=== PATIENT | male | born 1950 | race Caucasian/White ===

== ENCOUNTER 2017-05-19 10:36 | Emergency (ER) | payer MEDICAID ==
[2017-05-19 10:55] VITALS: BP 128/72
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
[2017-05-19] MEDS ORDERED: Ketorolac 30 MG/ML SDV IM ONE (12:11)
--- NOTE | 2017-05-20 19:53 | EKG ---
05/19/2017 - CAILIN JAEGER - TIME: 10:46 p.m. FINDINGS: EKG shows sinus rhythm. [facility] /[id number]
== END 2017-05-19 12:27 | disposition home or self-care (01) ==
LOC: DL.ED 10:36
DX: M54.2 Cervicalgia (principal); I10 Essential (primary) hypertension; F17.210 Nicotine dependence, cigarettes, uncomplicated; Z88.0 Allergy status to penicillin; Z88.8 Allergy status to other drugs, medicaments and biological substances; Z79.82 Long term (current) use of aspirin; Z79.899 Other long term (current) drug therapy
CPT/HCPCS: 36415; 84484; 85025; 93005; 96372; 99283; J1885; J2360

== ENCOUNTER 2018-07-18 02:47 | Emergency (ER) | payer MEDICARE, BC ==
--- NOTE | 2018-07-18 03:02 | EDM.PDOC ---
ED HPI GENERAL MEDICAL PROBLEM - General Chief Complaint: Chest Pain Stated Complaint: PAIN [id number] Time Seen by Provider: 07/18/18 02:55 Source of Information: Reports: Patient History Limitations: Reports: No Limitations - History of Present Illness INITIAL COMMENTS - FREE TEXT/NARRATIVE: woke up with midsternal chest pain took 2x NTG pain gone but got worried since the pain felt different to other times. does have CP on-off relieved by NTG. takes plavix for femoral stent from clots. - Related Data Allergies Allergy/AdvReac Type Severity Reaction Status Date / Time atorvastatin [From Lipitor] Allergy Muscle Verified 02/18/18 08:16 Aches Penicillins Allergy Rash Verified 02/18/18 08:16 Home Meds: Home Meds Aspirin [Adult Low Dose Aspirin EC] 81 mg PO DAILY 04/12/14 [History] Clopidogrel Bisulfate [Clopidogrel] 75 mg PO DAILY 04/12/14 [History] Chlorthalidone 25 mg PO DAILY 02/18/18 [History] Ciprofloxacin HCl [Cipro] 500 mg PO BID 7 Days #14 tablet 02/18/18 [Rx] Metoprolol Succinate 200 mg PO DAILY 02/18/18 [History] amLODIPine Besylate [Amlodipine Besylate] 5 mg PO DAILY 02/18/18 [History] metroNIDAZOLE [Flagyl] 500 mg PO TID 7 Days #21 tablet 02/18/18 [Rx] predniSONE [Prednisone] 5 mg PO DAILY 02/18/18 [History] Past Medical History Cardiovascular History: Reports: Hypertension Other Cardiovascular History: AAA at 5cm-monitored by Dr. Smith Respiratory History: Reports: COPD Gastrointestinal History: Reports: Other (See Below) Other Gastrointestinal History: Hernia Genitourinary History: Reports: Other (See Below) Other Genitourinary History: bilat. renal cysts Musculoskeletal History: Reports: Other (See Below) Other Musculoskeletal History: herniated disks Neurological History: Reports: Other (See Below) Other Neuro History: Peripheral Artery Disease with stent to lower leg - Past Surgical History GI Surgical History: Reports: Appendectomy Social & Family History - Caffeine Use Caffeine Use: Reports: None ED ROS GENERAL - Review of Systems Review Of Systems: ROS reveals no pertinent complaints other than HPI. ED EXAM, GENERAL - Physical Exam Exam: See Below Exam Limited By: No Limitations General Appearance: Alert, WD/WN, Anxious, Mild Distress, Other (no pain) Ears: Hearing Grossly Normal Throat/Mouth: Normal Voice, No Airway Compromise Head: Atraumatic Neck: Non-Tender, Full Range of Motion Respiratory/Chest: No Respiratory Distress Cardiovascular: Regular Rate, Rhythm GI/Abdominal: Soft, Non-Tender Neurological: Alert, Oriented, Normal Cognition, Normal Gait, No Motor/Sensory Deficits Psychiatric: Anxious Skin Exam: Warm, Dry, Normal Color Lymphatic: No Adenopathy Course - Vital Signs Last Recorded V/S: Last Vital Signs Temp 37.0 C 07/18/18 02:53 Pulse 84 07/18/18 02:53 Resp 15 07/18/18 02:53 BP 138/68 07/18/18 02:53 Pulse Ox 94 L 07/18/18 02:53 - Orders/Labs/Meds Orders: Active Orders 24 hr Category Date Time Status EKG 12 Lead [EKG Documentation Completion] [RC] STAT Care 07/18/18 02:53 Active Labs: Laboratory Tests 07/18/18 07/18/18 07/18/18 Range/Units 03:01 03:01 03:01 WBC 7.5 (5.0-10.0) 10^3/uL RBC 3.68 L (4.6-6.2) 10^6/uL Hgb 12.9 L D (14.0-18.0) g/dL Hct 37.6 L (40.0-54.0) % MCV 102.2 H D (80-100) fL MCH 35.1 H (27.0-34.0) pg MCHC 34.3 (33.0-35.0) g/dL Plt Count 187 (150-450) 10^3/uL Neut % (Auto) 72.3 (42.2-75.2) % Lymph % (Auto) 18.3 L (20.5-50.1) % [place] % (Auto) 8.2 H (2-8) % Eos % (Auto) 0.9 L (1.0-3.0) % Baso % (Auto) 0.3 (0.0-1.0) % Sodium 134 L (135-145) mmol/L Potassium 3.5 L (3.6-5.0) mmol/L Chloride 102 (101-111) mmol/L Carbon Dioxide 23.0 (21.0-31.0) mmol/L Anion Gap 12.5 BUN 27 H (7-18) mg/dL Creatinine 1.6 H (0.6-1.3) mg/dL Est Cr Clr Drug Dosing 50.52 mL/min Estimated GFR (MDRD) 44 BUN/Creatinine Ratio 16.87 Glucose 138 H (74-105) mg/dL Calcium 8.6 (8.4-10.2) mg/dl Total Bilirubin 0.8 (0.2-1.0) mg/dL AST 22 (10-42) IU/L ALT 15 (10-60) IU/L Alkaline Phosphatase 81 (42-121) IU/L Troponin I 0.00 (0.00-0.08) ng/mL Total Protein 6.5 L (6.7-8.2) g/dl Albumin 3.1 L (3.2-5.5) g/dl Globulin 3.4 Albumin/Globulin Ratio 0.91 Ethyl Alcohol < 5 mg/dL - Re-Assessments/Exams Free Text/Narrative Re-Assessment/Exam: 07/18/18 04:14 results discussed with pt who remains pain free and prefers to go home but will return prn. states has been under lot of stress past week but everything has been resolved and did go out to celebrate with couple margaritas earlier in the evening. Departure - Departure Time of Disposition: 04:14 Disposition: Home, Self-Care 01 Condition: Fair Clinical Impression: Angina pectoris without myocardial infarction Instructions: Angina Pectoris, [id number] Forms: ED Department Discharge Additional Instructions: 1) rest and avoid vigorous activities 2) return if there is any change or concern - My Orders Last 24 Hours: My Active Orders 07/18/18 02:53 EKG 12 Lead [EKG Documentation Completion] [RC] STAT - Assessment/Plan Last 24 Hours: My Active Orders 07/18/18 02:53 EKG 12 Lead [EKG Documentation Completion] [RC] STAT
[2018-07-18 03:28] LABS: ANION GAP 12.5
[2018-07-18 04:32] VITALS: BP 121/95
== END 2018-07-18 04:30 | disposition home or self-care (01) ==
LOC: DL.ED 02:47
DX: I20.9 Angina pectoris, unspecified (principal); I10 Essential (primary) hypertension; J44.9 Chronic obstructive pulmonary disease, unspecified; Z79.899 Other long term (current) drug therapy; Z79.82 Long term (current) use of aspirin; Z88.0 Allergy status to penicillin; Z88.8 Allergy status to other drugs, medicaments and biological substances
CPT/HCPCS: 36415; 80053; 84484; 85025; 93005; 99285; G0480

== ENCOUNTER 2020-10-27 09:21 | Emergency (ER) | payer MEDICARE, BC ==
[2020-10-27] MEDS ORDERED: Aspirin 81 MG Tab.Chew PO ONE (09:31)
[2020-10-27] MEDS ORDERED: Clopidogrel 75 MG Tab PO ONE (09:44)
[2020-10-27] MEDS ORDERED: Heparin Sodium 5,000 Units/ML Vial IVPUSH ONE (09:45)
[2020-10-27] MEDS ORDERED: Heparin Sodium/0.45% NaCl 25,000 UNITS/500 ML BAG IV SCH (09:45)
[2020-10-27] MEDS ORDERED: Nitroglycerin/D5W 25 MG/250 ML BOTTLE IV SCH (09:45)
--- NOTE | 2020-10-27 09:46 | EDM.PDOC ---
<Alanis Day - Last Filed: 10/27/20 10:17> ED HPI GENERAL MEDICAL PROBLEM - General Chief Complaint: Chest Pain Stated Complaint: HEART PAIN TOOK MED THAT SEEMED TO HELP Time Seen by Provider: 10/27/20 09:30 Chest Pain Score (Numeric/FACES): 0 - Related Data Allergies Allergy/AdvReac Type Severity Reaction Status Date / Time atorvastatin [From Lipitor] Allergy Muscle Verified 07/18/18 04:15 Aches Penicillins Allergy Rash Verified 07/18/18 04:15 Home Meds: Home Meds Aspirin [Adult Low Dose Aspirin EC] 81 mg PO DAILY 04/12/14 [History] Clopidogrel Bisulfate [Clopidogrel] 75 mg PO DAILY 04/12/14 [History] Chlorthalidone 25 mg PO DAILY 02/18/18 [History] Ciprofloxacin HCl [Cipro] 500 mg PO BID 7 Days #14 tablet 02/18/18 [Rx] Metoprolol Succinate 200 mg PO DAILY 02/18/18 [History] amLODIPine Besylate [Amlodipine Besylate] 5 mg PO DAILY 02/18/18 [History] metroNIDAZOLE [Flagyl] 500 mg PO TID 7 Days #21 tablet 02/18/18 [Rx] predniSONE [Prednisone] 5 mg PO DAILY 02/18/18 [History] Course - Radiology Interpretation Free Text/Narrative:: [facility] Final Radiology Report Call: [phone] assistance Online chat: [email or web address] Name: CAILIN JAEGER Age: 70Years M Date: 10/27/2020 SSN: -- : [id number] Study: CR CHEST 1V FRONTAL Requesting Physician: ALANIS DAY Images: 1 Addl Studies: Provided Clinical History: chest pain Contrast: Contrast Medium: Contrast Amount: Contrast Method: CONFIDENTIALITY STATEMENT This report is intended only for use by the referring physician, and only in accordance with law. If you received this in error, call [phone]. Page 1 of 1 PROCEDURE INFORMATION: Exam: XR Chest Exam date and time: 10/27/2020 9:44 AM Age: 70 years old Clinical indication: Chest wall pain; Additional info: Chest pain TECHNIQUE: Imaging protocol: XR of the chest. Views: 1 view. COMPARISON: No relevant prior studies available. FINDINGS: Lungs: Unremarkable. No consolidation. Pleural spaces: Unremarkable. No pleural effusion. No pneumothorax. Heart/Mediastinum: Unremarkable. No cardiomegaly. Bones/joints: Unremarkable. IMPRESSION: No acute findings. Thank you for allowing us to participate in the care of your patient. Dictated and Authenticated by: Min Aguillon MD 10/27/2020 10:08 AM Central Time ([place] & [place]) - Re-Assessments/Exams Free Text/Narrative Re-Assessment/Exam: 10/27/20 10:17 I saw and evaluated the patient. Discussed with PA and agree with PAs findings and plan as documented in the PAs note. Departure - Departure Disposition: DC/Tfer to Acute Hospital 02 Clinical Impression: Acute myocardial infarction Qualifiers: Myocardial infarction type: ST elevation myocardial infarction Involved coronary artery: right coronary artery Qualified Code(s): I21.11 - ST elevation (STEMI) myocardial infarction involving right coronary artery Forms[facility] <Michael Gorman - Last Filed: 10/27/20 10:42> ED HPI GENERAL MEDICAL PROBLEM - General Source of Information: Reports: Patient History Limitations: Reports: No Limitations - History of Present Illness INITIAL COMMENTS - FREE TEXT/NARRATIVE: 70 y/o M c/o sudden onset cp that woke him from sleep about 6 am this morning. Pn was 8/10 center chest, sharp in nature and radiating into his jaw. Pt took a nitro at the onset of pain and his pain went down to a 2/10 but came back up to an 8 ten minutes later. At 7 am he took another nitro and his pain went down to a 2 and remained there. He then drove hismelf to the ER. Currently the pain is constant, sharp center chest 2/10 but no longer radiates into the jaw. Heavy smoker 3 packs a day. Hx of AAA that is being watched by his physician. Denies domínguez db, nv, vision prob, trauma, abd pn, back pn. Onset: Today Onset Date: 10/27/20 Onset Time: 06:00 Duration: Hour(s): Location: Reports: Chest Quality: Reports: Sharp Severity: Severe Improves with: Reports: Medication Chest Pain Score (Numeric/FACES): 2 Past Medical History Cardiovascular History: Reports: Hypertension Other Cardiovascular History: AAA at 5cm-monitored by Dr. Smith Respiratory History: Reports: COPD Gastrointestinal History: Reports: Other (See Below) Other Gastrointestinal History: Hernia Genitourinary History: Reports: Other (See Below) Other Genitourinary History: bilat. renal cysts Musculoskeletal History: Reports: Other (See Below) Other Musculoskeletal History: herniated disks Neurological History: Reports: Other (See Below) Other Neuro History: Peripheral Artery Disease with stent to lower leg - Past Surgical History GI Surgical History: Reports: Appendectomy Social & Family History - Family History Cardiac: Reports: Hypertension Neurological: Reports: TIA - Caffeine Use Caffeine Use: Reports: None ED ROS GENERAL - Review of Systems Review Of Systems: Comprehensive ROS is negative, except as noted in HPI. ED EXAM, GENERAL - Physical Exam Exam: See Below Exam Limited By: No Limitations General Appearance: Alert Throat/Mouth: Normal Oropharynx Head: Atraumatic, Normocephalic Neck: Normal Inspection, Supple, Non-Tender, Full Range of Motion Respiratory/Chest: No Respiratory Distress, Chest Non-Tender, Rhonchi Peripheral Pulses: 2+: Carotid (L), Carotid (R), Radial (L), Radial (R) GI/Abdominal: Soft, Non-Tender (Male) Exam: Deferred Rectal (Males) Exam: Deferred Back Exam: Normal Inspection, Full Range of Motion Extremities: Normal Inspection, Normal Range of Motion, Non-Tender, Normal Capillary Refill, No Pedal Edema Neurological: Alert, Oriented, CN II-XII Intact, Normal Cognition, Normal Gait, Normal Reflexes, No Motor/Sensory Deficits Psychiatric: Normal Affect, Normal Mood Skin Exam: Warm, Dry, Intact #1 Interpretation EKG Date: 10/27/20 Time: 09:40 Rhythm: NSR [place]: Normal P-Wave: Present QRS: Normal ST-T: Elevated QT: Normal EKG Interpretation Comments: Inferior PA Course - Vital Signs Last Recorded V/S: Last Vital Signs Temp 98.2 F 10/27/20 09:53 Pulse 80 10/27/20 09:53 Resp 16 10/27/20 09:53 BP 131/78 10/27/20 09:53 Pulse Ox 99 10/27/20 09:53 - Orders/Labs/Meds Orders: Active Orders 24 hr Category Date Time Status EKG 12 Lead [EKG Documentation Completion] [RC] STAT Care 10/27/20 10:07 Active Heparin Sodium/0.45% NaCl [Heparin 25,000 Units in 1/2 Med 10/27/20 09:45 Active NS 500 ML] 25,000 units in 500 ml IV TITRATE Nitroglycerin/D5W [Nitroglycerin 25 MG/D5W 250 ML] Med 10/27/20 09:45 Active 25 mg in 250 ml IV TITRATE Medication Orders Nitroglycerin/Dextrose (Nitroglycerin 25 Mg/D5w 250 Ml) 25 mg in 250 mls @ 6 mls/hr IV TITRATE IESHA; Protocol Heparin Sodium/Sodium Chloride (Heparin 25,000 Units In 1/2 Ns 500 Ml) 25,000 units in 500 mls @ 20 mls/hr IV TITRATE IESHA; Protocol Last Admin: 10/27/20 10:13 Dose: 20 mls/hr, 20 mls/hr Documented by: SHAWNA Cosigned by: MILTON Labs: Laboratory Tests 10/27/20 10/27/20 10/27/20 Range/Units 09:34 09:34 09:34 WBC 10.2 H (5.0-10.0) 10^3/uL RBC 4.07 L (4.6-6.2) 10^6/uL Hgb 14.6 D (14.0-18.0) g/dL Hct 41.1 (40.0-54.0) % MCV 101.0 H (80-100) fL MCH 35.9 H (27.0-34.0) pg MCHC 35.5 H (33.0-35.0) g/dL Plt Count 202 (150-450) 10^3/uL Neut % (Auto) 80.2 H (42.2-75.2) % Lymph % (Auto) 10.3 L (20.5-50.1) % [place] % (Auto) 9.0 H (2-8) % Eos % (Auto) 0.4 L (1.0-3.0) % Baso % (Auto) 0.1 (0.0-1.0) % PT 9.6 (9.0-12.0) SEC INR 1.0 (0.9-1.2) APTT 24.2 (22.0-34.0) SEC D-Dimer, Quantitative 1130 H (0-400) ng/mL Sodium 136 (136-145) mmol/L Potassium 3.4 L (3.5-5.1) mmol/L Chloride 98 (98-107) mmol/L Carbon Dioxide 25 (21-32) mmol/L Anion Gap 16.4 H (7-13) mEq/L BUN 38 H (7-18) mg/dL Creatinine 2.18 H (0.70-1.30) mg/dL Est Cr Clr Drug Dosing 35.60 mL/min Estimated GFR (MDRD) 30 BUN/Creatinine Ratio 17.4 (No establ ref range) Glucose 104 H (70-99) mg/dL Calcium 8.6 (8.5-10.1) mg/dL Total Bilirubin 1.3 H (0.2-1.0) mg/dL AST 21 (15-37) U/L ALT 22 (16-63) U/L Alkaline Phosphatase 103 (46-116) U/L Troponin I High Sens 22 (<=76) pg/mL B-Natriuretic Peptide 10 (0-100) pg/ml Total Protein 7.6 (6.4-8.2) g/dL Albumin 3.0 L (3.4-5.0) g/dL Globulin 4.6 Albumin/Globulin Ratio 0.65 Amylase 53 (25-115) U/L Lipase 121 (73-393) U/L Meds: Medications Generic Name Dose Route Start Last Admin Trade Name Alexisq PRN Reason Stop Dose Admin Nitroglycerin/Dextrose 25 mg in 250 mls @ 6 mls/hr 10/27/20 09:45 Nitroglycerin 25 Mg/D5w 250 Ml IV TITRATE IESHA Protocol 10 MCG/MIN Heparin Sodium/Sodium Chloride 25,000 units in 500 mls @ 20 mls/hr 10/27/20 09:45 10/27/20 10:13 Heparin 25,000 Units In 1/2 Ns 500 Ml IV 20 mls/hr TITRATE IESHA 20 mls/hr Administration Protocol Discontinued Medications Generic Name Dose Route Start Last Admin Trade Name Alexisq PRN Reason Stop Dose Admin Aspirin 324 mg 10/27/20 09:31 10/27/20 10:04 Aspirin 81 Mg Tab.Chew PO 10/27/20 09:32 324 mg ONETIME ONE Administration Clopidogrel Bisulfate 300 mg 10/27/20 09:44 Clopidogrel 75 Mg Tab PO 10/27/20 09:45 ONETIME ONE Heparin Sodium (Porcine) 4,000 units 10/27/20 09:45 10/27/20 10:05 Heparin Sodium 5,000 Units/Ml Vial IVPUSH 10/27/20 09:46 4,000 units .BOLUS ONE Administration Departure - Departure Time of Disposition: 10:05 Reason for Transfer *Q: Other Condition: Serious Sepsis Event Note (ED) - Focused Exam Vital Signs: Vital Signs Temp Pulse Resp BP Pulse Ox 10/27/20 09:53 98.2 F 80 16 131/78 99
[2020-10-27 09:59] LABS: PTT,PARTIAL THROMBOPLSTIN TIME 24.2 SEC (22.0-34.0)
[2020-10-27 10:03] LABS: ANION GAP 16.4 mEq/L (7-13)
[2020-10-27 10:05] VITALS: BP 131/78; PULSE 80
--- NOTE | 2020-10-27 10:08 | CR ---
PROCEDURE INFORMATION: Exam: XR Chest Exam date and time: 10/27/2020 9:44 AM Age: 70 years old Clinical indication: Chest wall pain; Additional info: Chest pain TECHNIQUE: Imaging protocol: XR of the chest. Views: 1 view. COMPARISON: No relevant prior studies available. FINDINGS: Lungs: Unremarkable. No consolidation. Pleural spaces: Unremarkable. No pleural effusion. No pneumothorax. Heart/Mediastinum: Unremarkable. No cardiomegaly. Bones/joints: Unremarkable. IMPRESSION: No acute findings.
== END 2020-10-27 10:50 ==
LOC: DL.ED 09:21
DX: I21.11 ST elevation (STEMI) myocardial infarction involving right coronary artery (principal); I10 Essential (primary) hypertension; J44.9 Chronic obstructive pulmonary disease, unspecified; Z88.0 Allergy status to penicillin; Z88.8 Allergy status to other drugs, medicaments and biological substances; Z79.82 Long term (current) use of aspirin; Z79.02 Long term (current) use of antithrombotics/antiplatelets
CPT/HCPCS: 36415; 71045; 80053; 82150; 83690; 83880; 84484; 85025; 85379; 85610; 85730; 93005; 96365; 99285-25; A9270-GY; J1644

== ENCOUNTER 2021-01-05 17:16 | Emergency (ER) | payer MEDICARE, BC ==
[2021-01-05] MEDS ORDERED: Sodium Chloride 0.9% 10 ML Syringe FLUSH PRN (17:24)
--- NOTE | 2021-01-05 17:49 | EDM.PDOC ---
ED HPI GENERAL MEDICAL PROBLEM - General Stated Complaint: SLURRED WORDS, MAYBE STROKE Time Seen by Provider: 01/05/21 17:20 Source of Information: Reports: Patient, Family History Limitations: Reports: Altered Mental Status - History of Present Illness INITIAL COMMENTS - FREE TEXT/NARRATIVE: 70 y/o M lucilah in by son Wily for eval of possibel stroke. The son reports he called the pt at 430 and the pt was not making sense. He went to [facility] and drove him to the ER. The pt mumbles and cannot form words complicating the exam. The son found that the pt had talked to the uncle at 240 and was normal at that time. Hx of triple bypass around 2 months ago. Heavy smoker for many years.Heavy alcohol user. Unknown if pt is on blood thinners. No reported trauma. - Related Data Allergies Allergy/AdvReac Type Severity Reaction Status Date / Time atorvastatin [From Lipitor] Allergy Muscle Verified 01/05/21 18:00 Aches Penicillins Allergy Rash Verified 01/05/21 18:00 Home Meds: Home Meds Aspirin [Adult Low Dose Aspirin EC] 81 mg PO DAILY 04/12/14 [History] Clopidogrel Bisulfate [Clopidogrel] 75 mg PO DAILY 04/12/14 [History] Chlorthalidone 25 mg PO DAILY 02/18/18 [History] Ciprofloxacin HCl [Cipro] 500 mg PO BID 7 Days #14 tablet 02/18/18 [Rx] Metoprolol Succinate 200 mg PO DAILY 02/18/18 [History] amLODIPine Besylate [Amlodipine Besylate] 5 mg PO DAILY 02/18/18 [History] metroNIDAZOLE [Flagyl] 500 mg PO TID 7 Days #21 tablet 02/18/18 [Rx] predniSONE [Prednisone] 5 mg PO DAILY 02/18/18 [History] Past Medical History - Past Health History Medical/Surgical History: Denies Medical/Surgical History Cardiovascular History: Reports: Hypertension Other Cardiovascular History: AAA at 5cm-monitored by Dr. Smith Respiratory History: Reports: COPD Gastrointestinal History: Reports: Other (See Below) Other Gastrointestinal History: Hernia Genitourinary History: Reports: Other (See Below) Other Genitourinary History: bilat. renal cysts Musculoskeletal History: Reports: Other (See Below) Other Musculoskeletal History: herniated disks Neurological History: Reports: Other (See Below) Other Neuro History: Peripheral Artery Disease with stent to lower leg - Past Surgical History GI Surgical History: Reports: Appendectomy Social & Family History - Family History Cardiac: Reports: Hypertension Neurological: Reports: TIA - Caffeine Use Caffeine Use: Reports: Coffee ED ROS GENERAL - Review of Systems Review Of Systems: Unable To Obtain Reason Not Obtained: ams stroke ED EXAM, NEURO - Physical Exam Exam: See Below Exam Limited By: Other (Appears to be having a stroke pt tries to form words but cannot. Pt does not follow commands. Pt cannot write answers to questions with a pen) General Appearance: Alert Eye Exam: Bilateral Eye: PERRL (conjugate gaze) Ears: Normal External Exam, Normal Canal, Hearing Grossly Normal, Normal TMs Nose: Normal Inspection, Normal Mucosa, No Blood Throat/Mouth: Normal Inspection, Normal Lips, Normal Teeth, Normal Gums, Normal Oropharynx, Normal Voice, No Airway Compromise Head Exam: Atraumatic, Normocephalic Neck: Supple, Non-Tender Respiratory/Chest: Lungs Clear, Normal Breath Sounds Cardiovascular: Normal Peripheral Pulses, Regular Rate, Rhythm GI/Abdominal: Soft, Non-Tender (Male) Exam: Deferred Rectal (Males) Exam: Deferred Neurological: Alert, Other (No pronator drift, equal supervisor backfilling, no listing of the tongue, Pt unable to articulate his words and can grunt yesd or no but does not follow commands such as a finger to nose or heel to mcrae exercise. NIH score of 10) Comments: NIH score at time of arrival was 13. #1 Interpretation EKG Date: 01/05/21 Time: 17:40 Rhythm: Other (sinus with first degree block) [place]: Normal P-Wave: Present QRS: Normal ST-T: Normal QT: Normal Course - Vital Signs Last Recorded V/S: Last Vital Signs Temp 98.1 F 01/05/21 19:15 Pulse 84 01/05/21 20:38 Resp 24 H 01/05/21 20:38 BP 173/105 H 01/05/21 20:38 Pulse Ox 97 01/05/21 20:38 - Orders/Labs/Meds Orders: Active Orders 24 hr Category Date Time Status Blood Glucose Check, Bedside [RC] ONETIME Care 01/05/21 17:26 Active [place] Catheter Insertion [Insert Urinary Catheter] [OM. Care 01/05/21 18:45 Ordered PC] Q24H Insert [place] Catheter [Insert Urinary Catheter] [OM.PC] Care 01/05/21 19:00 Ordered Q24H Peripheral IV Care [RC] . DIRECTED Care 01/05/21 17:25 Active Urinary Catheter Assessment [RC] ASDIRECTED Care 01/05/21 18:44 Active Urinary Catheter Assessment [RC] ASDIRECTED Care 01/05/21 18:56 Active NPO Now [Nothing per Oral Now Diet] [DIET] Diet 01/06/21 Breakfast Active Alteplase [Activase] Med 01/05/21 18:45 Active 8.1 mg IVPUSH .BOLUS Sodium Chloride 0.9% [Saline Flush] Med 01/05/21 17:24 Active 10 ml FLUSH ASDIRECTED PRN Peripheral IV Insertion Adult [OM.PC] Routine Oth 01/05/21 17:24 Ordered Medication Orders Alteplase, Recombinant (Alteplase 100 Mg Vial) 8.1 mg IVPUSH .BOLUS IESHA Last Admin: 01/05/21 18:35 Dose: 8.1 mg Documented by: LUZ Cosigned by: MATIAS Sodium Chloride (Sodium Chloride 0.9% 10 Ml Syringe) 10 ml FLUSH ASDIRECTED PRN PRN Reason: Keep Vein Open Last Admin: 01/05/21 18:14 Dose: 10 ml Documented by: LUZ Labs: Laboratory Tests 01/05/21 01/05/21 01/05/21 Range/Units 17:24 17:25 17:25 WBC 6.8 (5.0-10.0) 10^3/uL RBC 3.70 L (4.6-6.2) 10^6/uL Hgb 11.8 L D (14.0-18.0) g/dL Hct 37.2 L (40.0-54.0) % MCV 100.5 H (80-100) fL MCH 31.9 (27.0-34.0) pg MCHC 31.7 L (33.0-35.0) g/dL Plt Count 209 (150-450) 10^3/uL Neut % (Auto) 57.6 (42.2-75.2) % Lymph % (Auto) 31.2 (20.5-50.1) % [place] % (Auto) 8.9 H (2-8) % Eos % (Auto) 2.2 (1.0-3.0) % Baso % (Auto) 0.1 (0.0-1.0) % PT (9.0-12.0) SEC INR (0.9-1.2) Sodium 140 (136-145) mmol/L Potassium 4.1 (3.5-5.1) mmol/L Chloride 105 (98-107) mmol/L Carbon Dioxide 26 (21-32) mmol/L Anion Gap 13.1 H (7-13) mEq/L BUN 23 H (7-18) mg/dL Creatinine 1.66 H (0.70-1.30) mg/dL Est Cr Clr Drug Dosing TNP Estimated GFR (MDRD) 41 BUN/Creatinine Ratio 13.9 (No establ ref range) Glucose 101 H (70-99) mg/dL POC Glucose 91 (70-99) mg/dL Calcium 8.1 L (8.5-10.1) mg/dL Magnesium 2.3 (1.8-2.4) mg/dL Total Bilirubin 0.3 (0.2-1.0) mg/dL AST 15 (15-37) U/L ALT 8 L (16-63) U/L Alkaline Phosphatase 148 H (46-116) U/L C-Reactive Protein 0.6 (0.0-0.9) mg/dL Total Protein 6.8 (6.4-8.2) g/dL Albumin 2.6 L (3.4-5.0) g/dL Globulin 4.2 Albumin/Globulin Ratio 0.62 Ethyl Alcohol < 3 (0) mg/dL SARS-CoV-2 RNA (MELO) (NEGATIVE) 01/05/21 01/05/21 Range/Units 17:25 17:47 WBC (5.0-10.0) 10^3/uL RBC (4.6-6.2) 10^6/uL Hgb (14.0-18.0) g/dL Hct (40.0-54.0) % MCV (80-100) fL MCH (27.0-34.0) pg MCHC (33.0-35.0) g/dL Plt Count (150-450) 10^3/uL Neut % (Auto) (42.2-75.2) % Lymph % (Auto) (20.5-50.1) % [place] % (Auto) (2-8) % Eos % (Auto) (1.0-3.0) % Baso % (Auto) (0.0-1.0) % PT 9.5 (9.0-12.0) SEC INR 0.9 (0.9-1.2) Sodium (136-145) mmol/L Potassium (3.5-5.1) mmol/L Chloride (98-107) mmol/L Carbon Dioxide (21-32) mmol/L Anion Gap (7-13) mEq/L BUN (7-18) mg/dL Creatinine (0.70-1.30) mg/dL Est Cr Clr Drug Dosing Estimated GFR (MDRD) BUN/Creatinine Ratio (No establ ref range) Glucose (70-99) mg/dL POC Glucose (70-99) mg/dL Calcium (8.5-10.1) mg/dL Magnesium (1.8-2.4) mg/dL Total Bilirubin (0.2-1.0) mg/dL AST (15-37) U/L ALT (16-63) U/L Alkaline Phosphatase (46-116) U/L C-Reactive Protein (0.0-0.9) mg/dL Total Protein (6.4-8.2) g/dL Albumin (3.4-5.0) g/dL Globulin Albumin/Globulin Ratio Ethyl Alcohol (0) mg/dL SARS-CoV-2 RNA (MELO) Negative (NEGATIVE) Meds: Medications Generic Name Dose Route Start Last Admin Trade Name Freq PRN Reason Stop Dose Admin Alteplase, Recombinant 8.1 mg 01/05/21 18:45 01/05/21 18:35 Alteplase 100 Mg Vial IVPUSH 8.1 mg .BOLUS IESHA Administration Sodium Chloride 10 ml 01/05/21 17:24 01/05/21 18:14 Sodium Chloride 0.9% 10 Ml Syringe FLUSH 10 ml ASDIRECTED PRN Administration Keep Vein Open Discontinued Medications Generic Name Dose Route Start Last Admin Trade Name Freq PRN Reason Stop Dose Admin Alteplase, Recombinant 72.75 0 mls @ 0 mls/hr 01/05/21 18:28 01/05/21 18:31 mg/ Alteplase, Recombinant IV 11/12/21 18:29 72.9 mls/hr ASDIRECTED STA Administration - Re-Assessments/Exams Free Text/Narrative Re-Assessment/Exam: 01/05/21 18:[address] Barboza the stroke neurologist at [facility] and he reviewed the CT and i read the reprot to him. After explaining the pts hx and representation Dr. Barboza instructed me to give Tpa after explaining the risks and benefits of it to the family. The family was informed of the risks and benefits and the son Wily gave permission to do the infusion. The pt cannot articulate or form his words but when I asked him for permission to do the infusion he nodded yes. I do not know if the pt truly understands what is happening to him so I also relied on the son for help with his medical decisions. 01/05/21 18:55 The pt did not have any contraindications to tPa except a recent KS in the last three months. Dr. Barboza explained that a recent inferior KS is a relative contraindication to tPa but he felt given the pts presentation the risk was worth the benefit. 01/05/21 19:03 [facility] fixed wing can transfer pt to [place]. Pt cannot go by chopper due to weather. Flight will take 1.5 hrs to get here. 01/05/21 20:47 The pts blood pressure was increasing with the latest being 173/105. I consulted with Dr. Barboza again who would like the bp to reamin below 10/105 post tPa. He suggested nicardipine of hydralazine if the BP increases. Departure - Departure Time of Disposition: 19:40 Disposition: DC/Tfer to Acute Hospital 02 Condition: Serious Clinical Impression: Ischemic stroke - Discharge Information *PRESCRIPTION DRUG MONITORING PROGRAM REVIEWED*: Not Applicable *COPY OF PRESCRIPTION DRUG MONITORING REPORT IN PATIENT LUIS MIGUEL: Not Applicable Forms: Interfacility Transfer EMTALA Sepsis Event Note (ED) - Focused Exam Vital Signs: Vital Signs Temp Pulse Resp BP BP Pulse Ox 01/05/21 20:38 84 24 H 173/105 H 97 01/05/21 20:21 86 20 172/102 H 96 01/05/21 20:00 86 16 166/99 H 97 01/05/21 19:45 86 22 H 184/83 H 100 01/05/21 19:30 82 18 175/95 H 99 01/05/21 19:15 98.1 F 80 18 187/99 H 99 01/05/21 18:04 97.8 F 85 20 193/122 H 98 - My Orders Last 24 Hours: My Active Orders 01/05/21 17:24 Sodium Chloride 0.9% [Saline Flush] 10 ml FLUSH ASDIRECTED PRN Peripheral IV Insertion Adult [OM.PC] Routine 01/05/21 17:25 Peripheral IV Care [RC] . DIRECTED 01/05/21 17:26 Blood Glucose Check, Bedside [RC] ONETIME 01/05/21 18:44 Urinary Catheter Assessment [RC] ASDIRECTED 01/05/21 18:45 [place] Catheter Insertion [Insert Urinary Catheter] [OM.PC] Q24H Alteplase [Activase] 8.1 mg IVPUSH .BOLUS 01/05/21 18:56 Urinary Catheter Assessment [RC] ASDIRECTED 01/05/21 19:00 Insert [place] Catheter [Insert Urinary Catheter] [OM.PC] Q24H - Assessment/Plan Last 24 Hours: My Active Orders 01/05/21 17:24 Sodium Chloride 0.9% [Saline Flush] 10 ml FLUSH ASDIRECTED PRN Peripheral IV Insertion Adult [OM.PC] Routine 01/05/21 17:25 Peripheral IV Care [RC] . DIRECTED 01/05/21 17:26 Blood Glucose Check, Bedside [RC] ONETIME 01/05/21 18:44 Urinary Catheter Assessment [RC] ASDIRECTED 01/05/21 18:45 [place] Catheter Insertion [Insert Urinary Catheter] [OM.PC] Q24H Alteplase [Activase] 8.1 mg IVPUSH .BOLUS 01/05/21 18:56 Urinary Catheter Assessment [RC] ASDIRECTED 01/05/21 19:00 Insert [place] Catheter [Insert Urinary Catheter] [OM.PC] Q24H
[2021-01-05 17:51] LABS: ANION GAP 13.1 mEq/L (7-13); CHLORIDE,CL 105 mmol/L (98-107); SODIUM,NA 140 mmol/L (136-145)
--- NOTE | 2021-01-05 18:00 | CT ---
PROCEDURE INFORMATION: Exam: CT Head Without Contrast Exam date and time: 01/05/2021 5:29 PM Age: 70 years old Clinical indication: Other: Slurred speech; Additional info: Dysphasia, R facial droop TECHNIQUE: Imaging protocol: Computed tomography of the head without contrast. Radiation optimization: All CT scans at this facility use at least one of these dose optimization techniques: automated exposure control; mA and/or kV adjustment per patient size (includes targeted exams where dose is matched to clinical indication); or iterative reconstruction. Other technique: STROKE PROTOCOL was implemented. COMPARISON: CT Head wo Cont 07/01/2018 11:03 AM FINDINGS: Brain: Generalized cortical atrophy with chronic white matter ischemic change. No acute hemorrhage. 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 No mass effect. Suggestion of acute/subacute ischemic change in the right temporal lobe. Cerebral ventricles: No ventriculomegaly. Paranasal sinuses: Visualized sinuses are unremarkable. No fluid levels. Mastoid air cells: Visualized mastoid air cells are well aerated. Bones/joints: Unremarkable. No acute fracture. Soft tissues: Unremarkable. IMPRESSION: 1. Age-related involutional changes. 2. Suggestion of acute ischemic infarct the right temporal lobe. 3. Evidence of old ischemic infarcts in the left hemisphere. ASSESSMENT: ASPECTS ([place] Stroke Program Early CT Score) is 8.
[2021-01-05] MEDS ORDERED: INFUSION IV STA (18:28)
[2021-01-05] MEDS ORDERED: ALTEPLASE IV STA (18:28)
[2021-01-05 21:35] VITALS: BP 166/94; PULSE 86
== END 2021-01-05 21:03 ==
LOC: DL.ED 17:16
DX: I63.9 Cerebral infarction, unspecified (principal); R29.713 NIHSS score 13; I10 Essential (primary) hypertension; J44.9 Chronic obstructive pulmonary disease, unspecified; Z88.0 Allergy status to penicillin; Z88.8 Allergy status to other drugs, medicaments and biological substances; Z79.82 Long term (current) use of aspirin; Z79.02 Long term (current) use of antithrombotics/antiplatelets; Z20.822 Contact with and (suspected) exposure to COVID-19
CPT/HCPCS: 36415; 37195; 51702; 70450; 80053; 80307; 82947; 83735; 85025; 85610; 86140; 93005; 99285; J2997; U0002

== ENCOUNTER 2021-02-02 19:58 | Emergency (ER) | payer MEDICARE, BC ==
[2021-02-02] MEDS ORDERED: Sodium Chloride 0.9% 10 ML Syringe FLUSH PRN (20:31)
[2021-02-02 21:06] LABS: ANION GAP 19.7 mEq/L (7-13); CHLORIDE,CL 105 mmol/L (98-107); SODIUM,NA 140 mmol/L (136-145)
--- NOTE | 2021-02-02 21:08 | EDM.PDOC ---
ED HPI GENERAL MEDICAL PROBLEM - General Source of Information: Reports: Patient History Limitations: Reports: Altered Mental Status <Michael Gorman - Last Filed: 02/02/21 22:29> <Mary Solis - Last Filed: 02/05/21 00:17> - General Chief Complaint: Neurological Problem Stated Complaint: CHECK OVER NOT FEELING GOOD. Time Seen by Provider: 02/02/21 21:00 - History of Present Illness INITIAL COMMENTS - FREE TEXT/NARRATIVE: 70 y/o M brought to the ER by a neighbor after being found in his truck in a ditch. 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 Hx of [place] months ago. Is prescribed blood thinners unknown if he is taking them. Unknown trauma today. Pt initally stated no alcohol today and then minutes later admitted to [facility]. Pt initially denied pain and minutes later complained of cp. pt uncle and brother have stated that pt is on a downward trend and continues to drink alcohol and not go to his rehab appointments. Pt is ams and cannot seem to give straight answers to questions thus inhibiting hpi, and physical exam. (Michael Gorman) - Related Data Allergies Allergy/AdvReac Type Severity Reaction Status Date / Time atorvastatin [From Lipitor] Allergy Muscle Verified 01/05/21 18:00 Aches Penicillins Allergy Rash Verified 01/05/21 18:00 Home Meds: Home Meds Aspirin [Adult Low Dose Aspirin EC] 81 mg PO DAILY 04/12/14 [History] Clopidogrel Bisulfate [Clopidogrel] 75 mg PO DAILY 04/12/14 [History] Chlorthalidone 25 mg PO DAILY 02/18/18 [History] Ciprofloxacin HCl [Cipro] 500 mg PO BID 7 Days #14 tablet 02/18/18 [Rx] Metoprolol Succinate 200 mg PO DAILY 02/18/18 [History] amLODIPine Besylate [Amlodipine Besylate] 5 mg PO DAILY 02/18/18 [History] metroNIDAZOLE [Flagyl] 500 mg PO TID 7 Days #21 tablet 02/18/18 [Rx] predniSONE [Prednisone] 5 mg PO DAILY 02/18/18 [History] Past Medical History - Past Health History Medical/Surgical History: Denies Medical/Surgical History Cardiovascular History: Reports: Hypertension Other Cardiovascular History: AAA at 5cm-monitored by Dr. Smith Respiratory History: Reports: COPD Gastrointestinal History: Reports: Other (See Below) Other Gastrointestinal History: Hernia Genitourinary History: Reports: Other (See Below) Other Genitourinary History: bilat. renal cysts Musculoskeletal History: Reports: Other (See Below) Other Musculoskeletal History: herniated disks Neurological History: Reports: Other (See Below) Other Neuro History: Peripheral Artery Disease with stent to lower leg - Past Surgical History GI Surgical History: Reports: Appendectomy <Michael Gorman - Last Filed: 02/02/21 22:29> Social & Family History - Family History Cardiac: Reports: Hypertension Neurological: Reports: TIA - Tobacco Use Tobacco Use Status *Q: Current Status Unknown - Caffeine Use Caffeine Use: Reports: Coffee - Recreational Drug Use Recreational Drug Use: No <Michael Gorman Filed: 02/02/21 22:29> ED ROS GENERAL - Review of Systems Review Of Systems: Comprehensive ROS is negative, except as noted in HPI. <Michael Gorman - Last Filed: 02/02/21 22:29> - Physical Exam Exam: See Below Exam Limited By: No Limitations General Appearance: Alert Eye Exam: Bilateral Eye: PERRL (with horizontal nystagmus.) Ears: Normal External Exam, Normal Canal, Hearing Grossly Normal, Normal TMs Nose: Normal Inspection, Normal Mucosa, No Blood Throat/Mouth: Normal Inspection, Normal Lips, Normal Teeth, Normal Gums, Normal Oropharynx, Normal Voice, No Airway Compromise Head Exam: Atraumatic, Normocephalic Neck: Normal Inspection, Supple, Non-Tender, Full Range of Motion Respiratory/Chest: No Respiratory Distress, Lungs Clear, Normal Breath Sounds, No Accessory Muscle Use, Chest Non-Tender Cardiovascular: Normal Peripheral Pulses, Regular Rate, Rhythm, No Edema, No Gallop, No JVD, No Murmur, No Rub GI/Abdominal: Soft, Non-Tender (Male) Exam: Deferred Rectal (Males) Exam: Deferred Neuro Exam (Abbreviated): Alert, Disoriented, Other (dysarthria. No facial droop, no pronator drift, equal shelter director, equal pedal flexion and extension) <Michael Gorman C - Last Filed: 02/02/21 22:29> #1 Interpretation EKG Date: 12/10/21 Time: 20:59 Rhythm: Other (sinus) [place]: Normal P-Wave: Present QRS: Normal ST-T: Normal QT: Normal <Michael Gorman - Last Filed: 02/02/21 22:29> #1 Interpretation EKG Interpretation Comments: sinus rhythm, rate 71, 1st degree block, normal R wave progression, EDER, no ectopy or st changes (Michael Gorman) Course - Vital Signs Last Recorded V/S: Last Vital Signs Temp 98.4 F 02/02/21 23:08 Pulse 74 02/02/21 23:08 Resp 18 02/02/21 23:08 BP 120/64 02/02/21 23:08 Pulse Ox 98 02/02/21 23:08 - Orders/Labs/Meds Labs: Laboratory Tests 02/02/21 02/02/21 02/02/21 Range/Units 20:24 20:40 20:40 WBC 7.7 (5.0-10.0) 10^3/uL RBC 3.68 L (4.6-6.2) 10^6/uL Hgb 11.3 L (14.0-18.0) g/dL Hct 36.0 L (40.0-54.0) % MCV 97.8 (80-100) fL MCH 30.7 (27.0-34.0) pg MCHC 31.4 L (33.0-35.0) g/dL Plt Count 206 (150-450) 10^3/uL Neut % (Auto) 64.9 (42.2-75.2) % Lymph % (Auto) 26.3 (20.5-50.1) % [place] % (Auto) 6.4 (2-8) % Eos % (Auto) 2.3 (1.0-3.0) % Baso % (Auto) 0.1 (0.0-1.0) % Sodium 140 (136-145) mmol/L Potassium 3.7 (3.5-5.1) mmol/L Chloride 105 (98-107) mmol/L Carbon Dioxide 19 L (21-32) mmol/L Anion Gap 19.7 H (7-13) mEq/L BUN 18 (7-18) mg/dL Creatinine 1.81 H (0.70-1.30) mg/dL Est Cr Clr Drug Dosing TNP Estimated GFR (MDRD) 37 BUN/Creatinine Ratio 9.9 (No establ ref range) Glucose 85 (70-99) mg/dL POC Glucose 90 (70-99) mg/dL Lactic Acid (0.4-2.0) mmol/L Calcium 8.2 L (8.5-10.1) mg/dL Phosphorus 4.5 (2.6-4.7) mg/dL Magnesium 2.3 (1.8-2.4) mg/dL Total Bilirubin 0.3 (0.2-1.0) mg/dL AST 20 (15-37) U/L ALT 13 L (16-63) U/L Alkaline Phosphatase 125 H (46-116) U/L Ammonia (11-32) umol/L Troponin I High Sens 21 (<=76) pg/mL C-Reactive Protein 1.2 H (0.0-0.9) mg/dL Total Protein 6.8 (6.4-8.2) g/dL Albumin 2.9 L (3.4-5.0) g/dL Globulin 3.9 Albumin/Globulin Ratio 0.74 Urine Color (YELLOW) Urine Appearance (CLEAR) Urine pH (5.0-9.0) Ur Specific [place] (1.005-1.030) Urine Protein (NEGATIVE) Urine Glucose (UA) (NEGATIVE) Urine Ketones (NEGATIVE) Urine Occult Blood (NEGATIVE) Urine Nitrite (NEGATIVE) Urine Bilirubin (NEGATIVE) Urine Urobilinogen (0.2-1.0) mg/dL Ur Leukocyte Esterase (NEGATIVE) Urine RBC (0-5) /HPF Urine WBC (0-5/HPF) /HPF Ur Epithelial Cells (NOT SEEN) /HPF Urine Bacteria (0-FEW/HPF) /HPF Urine Opiates Screen (NEGATIVE) Ur Oxycodone Screen (NEGATIVE) Urine Methadone Screen (NEGATIVE) Ur Barbiturates Screen (NEGATIVE) U Tricyclic Antidepress (NEGATIVE) Ur Phencyclidine Scrn (NEGATIVE) Ur Amphetamine Screen (NEGATIVE) U Methamphetamines Scrn (NEGATIVE) Urine MDMA Screen (NEGATIVE) U Benzodiazepines Scrn (NEGATIVE) Urine Cocaine Screen (NEGATIVE) U Marijuana (THC) Screen (NEGATIVE) Ethyl Alcohol 222 (0) mg/dL 02/02/21 02/02/21 02/02/21 Range/Units 20:40 20:40 21:32 WBC (5.0-10.0) 10^3/uL RBC (4.6-6.2) 10^6/uL Hgb (14.0-18.0) g/dL Hct (40.0-54.0) % MCV (80-100) fL MCH (27.0-34.0) pg MCHC (33.0-35.0) g/dL Plt Count (150-450) 10^3/uL Neut % (Auto) (42.2-75.2) % Lymph % (Auto) (20.5-50.1) % [place] % (Auto) (2-8) % Eos % (Auto) (1.0-3.0) % Baso % (Auto) (0.0-1.0) % Sodium (136-145) mmol/L Potassium (3.5-5.1) mmol/L Chloride (98-107) mmol/L Carbon Dioxide (21-32) mmol/L Anion Gap (7-13) mEq/L BUN (7-18) mg/dL Creatinine (0.70-1.30) mg/dL Est Cr Clr Drug Dosing Estimated GFR (MDRD) BUN/Creatinine Ratio (No establ ref range) Glucose (70-99) mg/dL POC Glucose (70-99) mg/dL Lactic Acid 3.8 H* (0.4-2.0) mmol/L Calcium (8.5-10.1) mg/dL Phosphorus (2.6-4.7) mg/dL Magnesium (1.8-2.4) mg/dL Total Bilirubin (0.2-1.0) mg/dL AST (15-37) U/L ALT (16-63) U/L Alkaline Phosphatase (46-116) U/L Ammonia 18 (11-32) umol/L Troponin I High Sens (<=76) pg/mL C-Reactive Protein (0.0-0.9) mg/dL Total Protein (6.4-8.2) g/dL Albumin (3.4-5.0) g/dL Globulin Albumin/Globulin Ratio Urine Color Yellow (YELLOW) Urine Appearance Slightly cloudy (CLEAR) Urine pH 6.0 (5.0-9.0) Ur Specific [place] 1.010 (1.005-1.030) Urine Protein Negative (NEGATIVE) Urine Glucose (UA) Negative (NEGATIVE) Urine Ketones Negative (NEGATIVE) Urine Occult Blood Trace-intact H (NEGATIVE) Urine Nitrite Negative (NEGATIVE) Urine Bilirubin Negative (NEGATIVE) Urine Urobilinogen 0.2 (0.2-1.0) mg/dL Ur Leukocyte Esterase Small H (NEGATIVE) Urine RBC 0-5 (0-5) /HPF Urine WBC 30-40 H (0-5/HPF) /HPF Ur Epithelial Cells Moderate H (NOT SEEN) /HPF Urine Bacteria Many H (0-FEW/HPF) /HPF Urine Opiates Screen (NEGATIVE) Ur Oxycodone Screen (NEGATIVE) Urine Methadone Screen (NEGATIVE) Ur Barbiturates Screen (NEGATIVE) U Tricyclic Antidepress (NEGATIVE) Ur Phencyclidine Scrn (NEGATIVE) Ur Amphetamine Screen (NEGATIVE) U Methamphetamines Scrn (NEGATIVE) Urine MDMA Screen (NEGATIVE) U Benzodiazepines Scrn (NEGATIVE) Urine Cocaine Screen (NEGATIVE) U Marijuana (THC) Screen (NEGATIVE) Ethyl Alcohol (0) mg/dL 02/02/21 02/02/21 02/02/21 Range/Units 21:32 23:13 23:55 WBC (5.0-10.0) 10^3/uL RBC (4.6-6.2) 10^6/uL Hgb (14.0-18.0) g/dL Hct (40.0-54.0) % MCV (80-100) fL MCH (27.0-34.0) pg MCHC (33.0-35.0) g/dL Plt Count (150-450) 10^3/uL Neut % (Auto) (42.2-75.2) % Lymph % (Auto) (20.5-50.1) % [place] % (Auto) (2-8) % Eos % (Auto) (1.0-3.0) % Baso % (Auto) (0.0-1.0) % Sodium (136-145) mmol/L Potassium (3.5-5.1) mmol/L Chloride (98-107) mmol/L Carbon Dioxide (21-32) mmol/L Anion Gap (7-13) mEq/L BUN (7-18) mg/dL Creatinine (0.70-1.30) mg/dL Est Cr Clr Drug Dosing Estimated GFR (MDRD) BUN/Creatinine Ratio (No establ ref range) Glucose (70-99) mg/dL POC Glucose (70-99) mg/dL Lactic Acid 2.3 H* (0.4-2.0) mmol/L Calcium (8.5-10.1) mg/dL Phosphorus (2.6-4.7) mg/dL Magnesium (1.8-2.4) mg/dL Total Bilirubin (0.2-1.0) mg/dL AST (15-37) U/L ALT (16-63) U/L Alkaline Phosphatase (46-116) U/L Ammonia (11-32) umol/L Troponin I High Sens (<=76) pg/mL C-Reactive Protein (0.0-0.9) mg/dL Total Protein (6.4-8.2) g/dL Albumin (3.4-5.0) g/dL Globulin Albumin/Globulin Ratio Urine Color (YELLOW) Urine Appearance (CLEAR) Urine pH (5.0-9.0) Ur Specific [place] (1.005-1.030) Urine Protein (NEGATIVE) Urine Glucose (UA) (NEGATIVE) Urine Ketones (NEGATIVE) Urine Occult Blood (NEGATIVE) Urine Nitrite (NEGATIVE) Urine Bilirubin (NEGATIVE) Urine Urobilinogen (0.2-1.0) mg/dL Ur Leukocyte Esterase (NEGATIVE) Urine RBC (0-5) /HPF Urine WBC (0-5/HPF) /HPF Ur Epithelial Cells (NOT SEEN) /HPF Urine Bacteria (0-FEW/HPF) /HPF Urine Opiates Screen Negative (NEGATIVE) Ur Oxycodone Screen Negative (NEGATIVE) Urine Methadone Screen Negative (NEGATIVE) Ur Barbiturates Screen Negative (NEGATIVE) U Tricyclic Antidepress Negative (NEGATIVE) Ur Phencyclidine Scrn Negative (NEGATIVE) Ur Amphetamine Screen Negative (NEGATIVE) U Methamphetamines Scrn Negative (NEGATIVE) Urine MDMA Screen Negative (NEGATIVE) U Benzodiazepines Scrn Negative (NEGATIVE) Urine Cocaine Screen Negative (NEGATIVE) U Marijuana (THC) Screen Negative (NEGATIVE) Ethyl Alcohol 140 (0) mg/dL Meds: Medications Discontinued Medications Generic Name Dose Route Start Last Admin Trade Name Freq PRN Reason Stop Dose Admin Sodium Chloride 1,000 mls @ 999 mls/hr 02/02/21 21:44 02/02/21 22:00 Normal Saline IV 02/02/21 22:44 999 mls/hr .BOLUS ONE Administration Sodium Chloride 1,000 mls @ 999 mls/hr 02/02/21 22:14 02/02/21 22:40 Normal Saline IV 02/02/21 23:14 999 mls/hr .BOLUS ONE Administration Sodium Chloride 10 ml 02/02/21 20:31 02/02/21 22:01 Sodium Chloride 0.9% 10 Ml Syringe FLUSH 10 ml ASDIRECTED PRN Administration Keep Vein Open Departure <Michael Gorman - Last Filed: 02/02/21 22:29> - Departure Time of Disposition: 01:30 Condition: Fair - Discharge Information *PRESCRIPTION DRUG MONITORING PROGRAM REVIEWED*: No *COPY OF PRESCRIPTION DRUG MONITORING REPORT IN PATIENT LUIS MIGUEL: No <Mary Solis - Last Filed: 02/05/21 00:17> - Departure Disposition: Home, Self-Care 01 Clinical Impression: Alcohol intoxication Qualifiers: Complication of substance-induced condition: uncomplicated Qualified Code(s): F10.920 - Alcohol use, unspecified with intoxication, uncomplicated - Discharge Information Instructions: Alcohol Intoxication, [id number] Referrals: PCP,None [Primary Care Provider] - Forms: ED Department Discharge Additional Instructions: decrease alcohol consumption clinic follow up next week call to schedule friday or friday urgent follow up if severe headache weakness or altered mentation take home medications as prescribed Sepsis Event Note (ED) - Evaluation Sepsis Screening Result: No Definite Risk <Michael Gorman - Last Filed: 02/02/21 22:29>
[2021-02-02 21:38] LABS: AMPHETAMINES,URINE NEGATIVE (NEGATIVE); BARBITURATES,URINE NEGATIVE (NEGATIVE); BENZODIAZEPINE,URINE NEGATIVE (NEGATIVE); MDMA (ECSTASY), URINE NEGATIVE (NEGATIVE); METHADONE,URINE NEGATIVE (NEGATIVE); METHAMPHETAMINES,URINE NEGATIVE (NEGATIVE); OPIATES,URINE NEGATIVE (NEGATIVE); OXYCODONE,URINE NEGATIVE (NEGATIVE); PHENCYCLIDINE,URINE NEGATIVE (NEGATIVE); TCA,URINE NEGATIVE (NEGATIVE)
[2021-02-02] MEDS ORDERED: Sodium Chloride 0.9% 1,000 ML IV ONE ×2 (21:44→22:14)
--- NOTE | 2021-02-02 22:00 | CT ---
PROCEDURE INFORMATION: Exam: CT Head Without Contrast Exam date and time: 02/02/2021 8:44 PM Age: 70 years old Clinical indication: Altered mental status. TECHNIQUE: Imaging protocol: Computed tomography of the head without contrast. Radiation optimization: All CT scans at this facility use at least one of these dose optimization techniques: automated exposure control; mA and/or kV adjustment per patient size (includes targeted exams where dose is matched to clinical indication); or iterative reconstruction. COMPARISON: CT Head 01/05/2021 5:29 PM FINDINGS: Mild age-appropriate cerebral volume loss. Small stable area of encephalomalacia is present in the left occipital lobe of the brain. An additional small area of encephalomalacia is present in the right temporal lobe of the brain which was present on the comparison examination though has matured some since the comparison examination. Mild periventricular and subcortical white matter hypodensity is present which is similar to the comparison examination. There is no evidence of intracranial hemorrhage, mass effect, hydrocephalus, or significant extra-axial collection. Distal internal carotid artery atherosclerotic calcification is present. Extracranial soft tissues are unremarkable. Osseous structures are intact. Visualized paranasal sinuses and mastoid air cells are clear IMPRESSION: 1. Small areas of encephalomalacia in the left occipital and right temporal lobes of the brain which suggest remote infarcts. The left occipital encephalomalacia is stable to the comparison examination and the right temporal encephalomalacia has matured some since the comparison examination. 2. Mild white matter disease of the brain which is similar to the comparison examination and likely represents sequelae of chronic small vessel ischemic change. 3. No acute intracranial findings.
[2021-02-02 22:15] VITALS: PULSE 74
[2021-02-02 23:09] VITALS: BP 120/64
== END 2021-02-03 01:40 | disposition home or self-care (01) ==
LOC: DL.ED 19:58
DX: F10.129 Alcohol abuse with intoxication, unspecified (principal); J44.9 Chronic obstructive pulmonary disease, unspecified; I10 Essential (primary) hypertension; I25.2 Old myocardial infarction; Y90.6 Blood alcohol level of 120-199 mg/100 ml; Z79.82 Long term (current) use of aspirin; Z79.02 Long term (current) use of antithrombotics/antiplatelets; Z79.899 Other long term (current) drug therapy; Z86.73 Personal history of transient ischemic attack (TIA), and cerebral infarction without residual deficits
CPT/HCPCS: 36415; 70450; 80053; 80305-QW; 80307; 81001; 82140; 82947; 83605; 83735; 84100; 84484; 85025; 86140; 87086; 87088; 87186; 93005; 99284-25; J7030

== ENCOUNTER 2021-08-05 20:04 | Emergency (ER) | payer MEDICARE, BC ==
[2021-08-05] MEDS: Ondansetron 4 MG/2 ML SDV IVPUSH ONE (20:08)
[2021-08-05] MEDS: HYDROmorphone 1 MG/ML Syringe IVPUSH ONE (20:11)
[2021-08-05] MEDS: fentaNYL 100 MCG/2 ML SDV IVPUSH ONE ×2 (20:29→22:13)
[2021-08-05 20:53] LABS: CHLORIDE,CL 104 mmol/L (98-107); SODIUM,NA 138 mmol/L (136-145)
[2021-08-05 20:55] LABS: ESTIMATED GFR 32
[2021-08-05 22:52] VITALS: BP 124/90; PULSE 82
[2021-08-06] MEDS: fentaNYL 100 MCG/2 ML SDV IVPUSH ONE (00:01)
== END 2021-08-06 00:07 ==
LOC: DL.ED 20:04
DX: S72.144A Nondisplaced intertrochanteric fracture of right femur, initial encounter for closed fracture (principal); J44.9 Chronic obstructive pulmonary disease, unspecified; Z86.73 Personal history of transient ischemic attack (TIA), and cerebral infarction without residual deficits; Z88.0 Allergy status to penicillin; Z88.8 Allergy status to other drugs, medicaments and biological substances; Z79.82 Long term (current) use of aspirin; Z79.02 Long term (current) use of antithrombotics/antiplatelets; Z20.822 Contact with and (suspected) exposure to COVID-19; W19.XXXA Unspecified fall, initial encounter; Y92.009 Unspecified place in unspecified non-institutional (private) residence as the place of occurrence of the external cause
CPT/HCPCS: 36415; 73502; 80053; 84484; 85025; 85610; 93005; 93010; 96374; 96375; 96376; 99284; 99285; J1170; J2405; J3010; U0002

== ENCOUNTER 2021-09-30 02:48 | Emergency (ER) | payer MEDICARE, BC ==
[2021-09-30] MEDS ORDERED: Aspirin 81 MG Tab.Chew PO ONE (02:55)
[2021-09-30] MEDS ORDERED: Nitroglycerin 0.4 MG Tab.SL SL ONE (02:55)
[2021-09-30 03:04] VITALS: PULSE 62
[2021-09-30] MEDS ORDERED: Morphine 2 MG/ML SYRINGE IVPUSH ONE ×2 (03:06→03:24)
[2021-09-30 03:34] VITALS: BP 98/60
[2021-09-30 03:44] LABS: ANION GAP 11.4 mEq/L (7-13)
== END 2021-09-30 04:23 | disposition left against medical advice (07) ==
LOC: DL.ED 02:48
DX: R07.9 Chest pain, unspecified (principal); S70.01XA Contusion of right hip, initial encounter; F10.920 Alcohol use, unspecified with intoxication, uncomplicated; I10 Essential (primary) hypertension; I25.2 Old myocardial infarction; J44.9 Chronic obstructive pulmonary disease, unspecified; F17.210 Nicotine dependence, cigarettes, uncomplicated; Z86.73 Personal history of transient ischemic attack (TIA), and cerebral infarction without residual deficits; Z88.0 Allergy status to penicillin; Z88.8 Allergy status to other drugs, medicaments and biological substances; Z79.82 Long term (current) use of aspirin; Z79.02 Long term (current) use of antithrombotics/antiplatelets; Z20.822 Contact with and (suspected) exposure to COVID-19; Y90.8 Blood alcohol level of 240 mg/100 ml or more; W19.XXXA Unspecified fall, initial encounter
CPT/HCPCS: 36415; 71045; 80053; 80307; 82150; 83605; 83690; 83735; 83880; 84484; 85025; 85610; 93010; 96374; 99284; 99285; A9270; J2270; U0002

== ENCOUNTER 2021-10-01 08:48 | Emergency (ER) | payer MEDICARE, BC ==
[2021-10-01 08:59] VITALS: BP 154/86; PULSE 92
== END 2021-10-01 11:16 | disposition home or self-care (01) ==
LOC: DL.ED 08:48
DX: S80.01XA Contusion of right knee, initial encounter (principal); I25.2 Old myocardial infarction; I10 Essential (primary) hypertension; J44.9 Chronic obstructive pulmonary disease, unspecified; F17.210 Nicotine dependence, cigarettes, uncomplicated; Z86.73 Personal history of transient ischemic attack (TIA), and cerebral infarction without residual deficits; Z88.0 Allergy status to penicillin; Z88.8 Allergy status to other drugs, medicaments and biological substances; Z79.82 Long term (current) use of aspirin; Z79.02 Long term (current) use of antithrombotics/antiplatelets; Z79.899 Other long term (current) drug therapy; W18.30XA Fall on same level, unspecified, initial encounter
CPT/HCPCS: 73562-RT; 99283; 99284

== ENCOUNTER 2021-10-22 14:36 | Emergency (ER) | payer MEDICARE, BC ==
[2021-10-22 14:48] VITALS: BP 139/88; PULSE 86
== END 2021-10-22 15:13 | disposition left against medical advice (07) ==
LOC: DL.ED 14:36
DX: Z53.21 Procedure and treatment not carried out due to patient leaving prior to being seen by health care provider (principal)